=== PATIENT | female | born 1990 | race Caucasian/White ===

== ENCOUNTER 2016-12-11 01:28 | Emergency (ER) | payer OTHER ==
--- NOTE | ~2016-12-11 | CR127 ---
[facility] A Service of [facility] RADIOLOGY TEXT RESULTS PATIENT: KRISTEN YAN LOCATION: [facility] : [birth year] UNIT #: [id number] AGE: [address]: Alireza Wells MD SEX: F ORDER DR: [id number] [facility] [address] [place], [place] [address] [id number] E MR#: [id number] Acc #: [id number] NAME: KRISTEN YAN : 1990 SEX: F STUDY DATE/TIME: 12/11/2016 01:09 UNIT: [facility] ROOM: STUDY DESCRIPTION: CR Foot Complete Min 3 View Rt Attending Physician: Er Doctor Generic Ordering Physician: Ed Jovani Hall M.D. Primary Care Physician: Naz Mendosa M.D. MEDICAL IMAGING REPORT This report is preliminary unless electronic signature is present EXAM Right foot, 12/11/2016 at 0109 hours. INDICATION Right fifth toe pain after stubbing injury yesterday. FINDINGS 4 views of the right foot were obtained. No fracture or malalignment is seen. The soft tissues are normal. IMPRESSION Normal right foot. Dictated by... Brandin Betancourt Jr., M.D. THIS IS AN ELECTRONICALLY VERIFIED REPORT Brandin Betancourt Jr., M.D. at 12/11/2016 6:25 AM LONG/mary TD: 12/11/2016 02:52 JOB #: [id number] MEDICAL IMAGING REPORT Page 1 of 1 COPY
== END 2016-12-11 03:47 | disposition home or self-care (01) ==
LOC: CED 01:28
DX: S90.121A Contusion of right lesser toe(s) without damage to nail, initial encounter (principal); W22.8XXA Striking against or struck by other objects, initial encounter; Y92.9 Unspecified place or not applicable; Z88.8 Allergy status to other drugs, medicaments and biological substances
CPT/HCPCS: 73630; 99283